=== PATIENT | male | born 1990 ===

== ENCOUNTER 2018-04-16 14:31 | Emergency (ER) | payer OTHER ==
--- OUTSIDE RECORDS SUMMARY | 2018-04-16 14:44 | XMS REPORT ---
:1990 External Reference #:[id number] Author Organization [facility] Address [address] [place] [address] Phone [phone] Care Team Providers Name Role Phone Pavel Nava MD Care Team Information Engineering Research Manager Unavailable Pavel Nava MD Primary Care Physician Unavailable Payers Type Date Identification Numbers Payment Provider Subscriber Commercial Policy Number: [id number] BC/BS Of [employer] Name: Cheng [address] [address] PayID: [id number] [place] [address] Problems Description No Information Family History Date Family Member(s) Problem(s) Comments Father Diabetes Mellitus, II Father Stroke Mother No Current Problems Mother 49 Social History Type Date Description Comments Marital Status Single 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 Allergies, Adverse Reactions, Alerts Date Description Reaction Status Severity Comments 03/18/2018 NKDA active Medications Medication Date Status Form Strength Qnty SIG Indications Ordering Provider Adderall XR 03/18/20 Active Caps ER 25mg 30caps 1 by F90.0 Pavel Morillo 18 24HR mouth Elijah, every Am No Active 03/18/20 Hx Unknown Medications 18 - 03/18/20 18 Vital Signs Date Vital Result Comment 04/14/2018 BP Systolic 120 mmHg BP Diastolic 86 mmHg Heart Rate 72 /min Body Temperature 98.1 F Respiratory Rate 16 /min Weight 268.00 lb 03/18/2018 BP Systolic 128 mmHg BP Diastolic 82 mmHg Heart Rate 72 /min Body Temperature 98.5 F Height 72 inches 6'0" Weight 278.50 lb BMI (Body Mass Index) 37.8 kg/m2 Results Test Date Test Result H/L Range Note Comprehensive Metabolic Prof 03/18/2018 Sodium 135 mEq/L 134-149 Potassium 5.0 mEq/L 3.6-5.5 Chloride 100 mEq/L 94-112 Carbon Dioxide 25 mEq/L 21-32 Glucose 104 mg/dL 70-105 BUN 16 mg/dL 6-26 Creatinine 1.0 mg/dL 0.6-1.4 BUN/Creat Ratio 16.0 CALC 8.0-36.0 Calcium 9.3 mg/dL 8.6-10.2 Total Protein 6.9 g/dL 6.4-8.3 Albumin 4.5 g/dL 3.8-5.5 Globulin 2.4 g/dL 2.0-4.8 A/G Ratio 1.9 CALC 0.6-2.3 Alk. Phosphatase 97 U/L High 22-95 Alt (SGPT) 62 U/L High 7-35 Ast (Sgot) 33 U/L 5-34 Total Bilirubin 1.0 mg/dL 0.2-1.3 GFR Non- >60 ml/min/1.73m^ >=60 GFR >60 ml/min/1.73m^ >=60 Lipid Profile 03/18/2018 Cholesterol 210 mg/dL High 120-200 Triglycerides 91 mg/dL 30-200 HDL Cholesterol 47 mg/dL 30-70 LDL (Calculated) 145 CALC High 0-129 VLDL Cholesterol 18 mg/dL 0-50 HDL Risk Factor 4.5 CALC High 0.0-4.4 Laboratory test finding 03/18/2018 TSH 1.21 mIU/L 0.50-6.00 CBC Electronic Fma 03/18/2018 WBC 7.3 x10^3/UL 4.0-10.0 RBC 5.72 x10^6/UL 3.93-6.00 HGB 16.8 g/dL 12.0-17.0 HCT 48 % 35-50 MCV 83.7 fL 80.0-95.0 MCH 29.4 pg 25.6-32.2 MCHC 35.1 g/dL 32.2-36.0 RDW-CV 12.1 % 11.6-14.4 PLT 257 x10^3/UL 163-400 MPV 10.4 fL 9.4-12.4 Reynold# 4.21 x10^3/UL 1.56-6.13 Lymph# 2.39 x10^3/UL 1.18-3.74 [place]# 0.61 x10^3/UL 0.24-0.82 Eos # 0.1 x10^3/UL 0.0-0.5 Baso # 0.02 x10^3/UL 0.01-0.08 Reynold% 57.3 % 34.0-70.0 Lymph % 32.6 % 20.0-52.0 [place]% 8.3 % 5.0-12.0 Eos% 1.4 % 0.7-7.0 Baso% 0.3 % 0.1-1.2 Procedures Description No Information Encounters Type Date Location Provider CPT E/M Dx Office Visit 03/18/2018 9:20a [facility] Office Pavel Nava, [id number] Z00.00 F90.0 Plan of Care 04/14/2018 - Symone Thomson, FNPF90.0 Attn-defct hyperactivity disorder, predom inattentive typeAllComments:~B_~U_Medication Management~b_~u_ Patient Understands medications he 's taking? Yes No Are there Barriers to Adherence? Yes No Has the patient been asked about herbal supplements and therapies, and OTC meds? Yes No
--- OUTSIDE RECORDS SUMMARY | 2018-04-16 14:44 | XMS REPORT ---
:1990 External Reference #:[id number] Author Organization [facility] Address [address] [place] [address] Phone [phone] Care Team Providers Name Role Phone Pavel Nava MD Care Team Information Creche Attendant Unavailable Pavel Nava MD Primary Care Physician Unavailable Payers Type Date Identification Numbers Payment Provider Subscriber Commercial Policy Number: [id number] BC/BS Of [employer] Name: Cheng [address] [address] PayID: [id number] [place] [address] Problems Description No Information Family History Date Family Member(s) Problem(s) Comments Father Diabetes Mellitus, II Father Stroke Mother No Current Problems Mother 49 Social History Type Date Description Comments Marital Status 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 Allergies, Adverse Reactions, Alerts Date Description Reaction Status Severity Comments 03/18/2018 NKDA active Medications Medication Date Status Form Strength Qnty SIG Indications Ordering Provider Adderall XR 03/18/20 Active Caps ER 25mg 30caps 1 by F90.0 Pavel Flores 24HR mouth Elijah, every Am No Active 03/18/20 Hx Unknown Medications 18 - 03/18/20 18 Vital Signs Date Vital Result Comment 03/18/2018 BP Systolic 128 mmHg BP Diastolic 82 mmHg Heart Rate 72 /min Body Temperature 98.5 F Height 72 inches 6'0" Weight 278.50 lb BMI (Body Mass Index) 37.8 kg/m2 Results Test Date Test Result H/L Range Note Laboratory test finding 03/18/2018 TSH <pending> 0.5-5.0 Procedures Description No Information Plan of Care Future Appointment(s):04/21/2018 8:30 am - Pavel Nava MD at [facility] [id number]/18/2018 - Pavel Nava MDZ00.00 Encntr for general adult medical exam w/o abnormal [id number] Attn-defct hyperactivity disorder, predom inattentive typeNew Medication:Adderall XR 25 mgFollow up:one month.AllComments:~B_~U_Medication Management~b_~u_ Patient Understands medications he's taking? Yes No Are there Barriers to Adherence? Yes No Has the patient been asked about herbal supplements and therapies, and OTC meds? Yes No
[2018-04-16 14:55] VITALS: BP 131/85
--- NOTE | 2018-04-16 15:09 | ED ---
Head Injury - HPI Summary HPI Summary: A 27 y/o male presents to [facility] s/p right-sided head injury reaching 3/10 in severity. Currently, the patient still does not feel like himself and describes his headache as "uncomfortable pressure". As per triage, "stood up under a support beam this morning and hit the right side of his head. now he doesn't feel like himself, lost his balance and dropped things, standing up feels off. did not lose conciousness". According to the patient, he accidentally hit his head at work around 11:30 PM, "knocked myself silly". He stated that he was throwing away some trash and he hit his head on the support beam in the process of lifting the can into the dumpster. Denies any loss of consciousness or being dazed. Initially, the patient felt fine, however, as the day when on he did not feel like his normal self. Around [id number] he lost his balance and dropped several glasses. Additionally, he noted that his peers stated that he looked flush. Patient denies any visual changes, photophobia, vomiting, weakness /numbness in arm or leg, fever, however, does have nausea. PMHx of concussion ( 2 times) and it feels like that. Patient denies work note. - History Of Current Complaint Chief Complaint: UCHeadInjury Stated Complaint: HEAD INJURY Time Seen by Provider: 04/16/18 14:32 Hx Obtained From: Patient Mechanism Of Injury: Direct Blow - Right-sided head injury Onset/Duration: Started Hours Ago, Still Present, Worse Since - Incident. Onset of Pain: Immediate Severity Currently: Mild Severity Initially: Mild Pain Intensity: 3 Pain Scale Used: 0-10 Numeric Location of Head Injury: Other: - Right-sided Character: Pressure - Uncomfortable pressure Aggravating Factor(s): Other: - NOTHING Alleviating Factor(s): Other: - NOTHING Associated Signs And Symptoms: Nausea, Headache - Allergies/Home Medications Allergies/Adverse Reactions: Allergies Allergy/AdvReac Type Severity Reaction Status Date / Time dust Allergy Itching Uncoded 04/16/18 14:55 mold Allergy Difficulty Uncoded 04/16/18 14:55 Breathing Home Medications: Home Medications Dextroamphetamine/Amphetamine [Adderall Xr 20 mg Capsule] 1 tab PO DAILY [History Confirmed 04/16/18] PMH/Surg Hx/FS Hx/Imm Hx Previously Healthy: Yes Neurological History: Reports: Other Neuro Impairments/Disorders - Concussion Psychiatric History: Reports: Other Psychiatric Issues/Disorders - ADHD - Surgical History Surgery Procedure, Year, and Place: gallbladder removal, deviated septum repair , 5 shoulder reconstructions, adenoids removal Infectious Disease History: No Infectious Disease History: Denies: Traveled Outside the [place] in Last 30 Days - Family History Known Family History: Positive: Unknown - Social History Alcohol Use: Daily Substance Use Type: Reports: None Smoking Status (MU): Former Smoker Review of Systems Positive: Other - POSITIVE: Flushed. Negative: Fever Negative: Photophobia, Blurred Vision, Diplopia ENT: Negative Cardiovascular: Negative Respiratory: Negative Gastrointestinal: Negative Positive: Nausea. Negative: Vomiting Genitourinary: Negative Musculoskeletal: Negative Positive: Other - NEGATIVE: Weakness/numbness in arms and legs Skin: Negative Neurological: Other - NEGATIVE: LOC;POSITIVE: Loss of balance, mild nausea but no episode of vomiting Positive: Headache. Negative: Weakness All Other Systems Reviewed And Are Negative: Yes Physical Exam - Summary Physical Exam Summary: Appearance: Well-Appearing, No Pain Distress, Well-Nourished, Alert and oriented x3. No acute distress. Affect appropriate. Eyes: conjunctiva clear, no discharge ENT: Hearing grossly normal, no muffled/hoarse voice. Neck: Normal, Supple Respiratory/Lung Sounds: Lungs clear, Normal breath sounds, No respiratory distress, No accessory muscle use Cardiovascular: RRR, No murmur Abdomen: Nontender, Soft, no guarding, not distended Bowel Sounds: Present Musculoskeletal: Normal Psychiatric:Normal, age appropriate behavior Skin: Normal, Warm, Dry, Normal color C-spine: Full range of motion, no cervical spine, paraspinal muscle or trapezius tenderness noted bilaterally. HEENT: EOMI and PERRLA. No nystagmus noted. Convergence at <6 cm. No symptoms with visual tracking. Normal smooth pursuits and saccades. Gait: Tandem normal, No dysmetria. No imbalance noted. Romberg negative. Finger to nose normal. Cranial nerves I through XII intact. Normal motor and sensory exam. Normal deep tendon reflexes Normal distal sensation and pulses. Triage Information Reviewed: Yes Vital Signs On Initial Exam: Initial Vitals Temp Pulse Resp BP Pulse Ox 98.3 F 70 18 131/85 100 04/16/18 14:50 04/16/18 14:50 04/16/18 14:50 04/16/18 14:50 04/16/18 14:50 Vital Signs Reviewed: Yes Diagnostics - Vital Signs Vital Signs Temp Pulse Resp BP Pulse Ox 04/16/18 14:50 98.3 F 70 18 131/85 100 - Laboratory Lab Statement: Any lab studies that have been ordered have been reviewed, and results considered in the medical decision making process. Head Injury Course/Dx Course Of Treatment: In the ED course, the patient recieved no medications. Patient will be discharged with a diagnosis concussion. Patient can take Tylenol for headache, however, is not to take Ibuprofen. Patient is to be under observation of someone for the next 24 hours. Patient is to follow up with PCP in 2 days.We discussed the red flags like worsening headache, nausea and vomiting, any sensory or motor changes that he should monitor for and immediately called 911. Pt is agreeable with this plan. - Diagnoses Provider Diagnoses: Concussion Discharge - Sign-Out/Discharge Documenting (check all that apply): Patient Departure - DISCHARGE - Discharge Plan Condition: Stable Disposition: HOME Patient Education Materials: Concussion (ED) Referrals: Pavel Nava MD [Primary Care Provider] - 2 Days Additional Instructions: You can take Tylenol for headache. Do not take ibuprofen. Stay with someone for the next 24 hours. Follow up with your primary care doctor in 2 days. Return to Urgent care / ER if symptoms get worse or you develop worsening headache, nausea or vomiting, any sensory loss or weakness in your limbs. - Billing Disposition and Condition Condition: STABLE Disposition: Home
== END 2018-04-16 15:18 | disposition home or self-care (01) ==
LOC: UCEAST 14:31
DX: S06.0X0A Concussion without loss of consciousness, initial encounter (principal); W22.09XA Striking against other stationary object, initial encounter; Y93.89 Activity, other specified; Y92.9 Unspecified place or not applicable; Y99.0 Civilian activity done for income or pay; Z87.820 Personal history of traumatic brain injury; F90.9 Attention-deficit hyperactivity disorder, unspecified type; Z87.891 Personal history of nicotine dependence
CPT/HCPCS: 99201; G0463